=== PATIENT | female | born 1985 | race Asian ===

== ENCOUNTER 2017-03-07 08:46 | Emergency (ER) | payer BC ==
[~2017-03-07] VITALS: Ht 149.9 cm; Wt 47.0 kg
[2017-03-07] MEDS ORDERED: LEVO50TA8 PO (09:03)
[2017-03-07 10:45] VITALS: BP 117/70
[2017-03-07 14:48] LABS: HEPATITIS B SURFACE AB 5.1 mIU/mL
[2017-03-07 14:59] LABS: HEPATITIS B SURFACE ANTIGEN NEGATIVE
[2017-03-07 15:27] LABS: HEPATITIS B CORE AB IGM NEGATIVE
[2017-03-07 15:29] LABS: HEPATITIS A AB IGM NEGATIVE (NEGATIVE)
== END 2017-03-07 11:09 | disposition home or self-care (01) ==
LOC: ER 11:05
DX: S61.031A Puncture wound without foreign body of right thumb without damage to nail, initial encounter (principal); W46.1XXA Contact with contaminated hypodermic needle, initial encounter; Y93.89 Activity, other specified; Y92.89 Other specified places as the place of occurrence of the external cause; Y99.8 Other external cause status
CPT/HCPCS: 36415; 86703; 86705; 86706; 86709; 86803; 87340; 99284